=== PATIENT | male | born 1960 | race African-American/Black ===

== ENCOUNTER 2024-06-24 08:00 | Emergency (ER) | payer BC, SELFPAY ==
[2024-06-24 08:19] VITALS: BP 140/92
[2024-06-24 09:20] VITALS: BP 144/88
--- NOTE | 2024-06-24 09:35 | ED.MUSCINJ ---
HPI-Injury
General
Chief Complaint: Extremity Pain (non-traumatic)
Source: patient
Exam Limitations: none
Time Seen by Provider: 06/24/24 09:21
History of Present Illness-Injury
Initial Injury comments:
63-year-old homeless male with history of gout presents complaining of pain in the feet left greater than the right. Feels like his gout has in the past. No known injury. He states he was wearing different shoewear recently which may have thrown
him off. He denies chest pain or shortness of breath. No fever. He did states that he is having pain in his hips and down to his legs however that he attributes this to wearing different boots that through his gait off. He is now wearing normal
sneakers which seems to be helping. No associated numbness. History of hypertension otherwise. No other complaints at this
Past History
Past History
ED Past Medical History: CAD
ED Past Surgical History: Cardiac
Social History
Tobacco: Non-smoker
Alcohol: None
Drug: None
Personal: Single
Living: homeless
Employment: Not employed
Phy Exam
Physical Exam
Physical Exam:
General: Well-appearing male no acute respiratory distress
HEENT: Normocephalic atraumatic
Musculoskeletal exam: Left large toe at the MTP joint erythematous and tender. No lymphangitic streaking bilateral hips are nontender with full range of motion able to straight leg raise bilaterally. Hip and knee flexion intact. No tenderness to
the upper legs
Vascular: 2+ dorsalis pedis pulse bilateral feet
Neurologic: Good sensation bilateral feet
Injury Course
Orders/Labs/Results
Orders:
Orders
06/24/24 09:31
Cast Shoe Left-Treatment ONCE
Prednisone [Deltasone] 50 mg PO NOW STA
06/24/24 09:51
CR Femur - Left Min 2 Vw Urgent
Comment:
Reason For Exam: pain
CR Femur - Right Min 2 Vw Urgent
Comment:
Reason For Exam: pain
CR Pelvis - 1 Or 2 Views Urgent
Comment:
Reason For Exam: pain in hips
MDM/Problems Addressed
Differential Diagnosis Includes:
Left large toe pain exam most consistent with gout. He has a history of the same. No injury to suggest fracture. His legs examined well otherwise. No sign of infection.
Patient has a halfway that he is staying currently. Will start prednisone and give him a cast shoe
*Critical Care Note
Total Time (30-74mins, 75-104mins- exclusive of procedures): Not Applicable
Update Note
Update Note:
X-rays of the pelvis and bilateral femurs were negative for acute finding. Patient reassured. Suspect gout flare to the left foot. Prednisone will be prescribed
ED Attending Note
-
Portions of this chart may have been created with voice recognition software.� Occasional wrong word or��sound alike� substitutions may have occurred due to the inherent limitations of voice recognition software.
Discharge Plan
Departure
Patient Disposition: Home (Routine Discharge)
Date of Disposition: 06/24/24
Time of Disposition: 12:40
Patient with high blood pressure during this ER visit?: No
Discharge Problem:
Gout attack
Prescriptions:
New
prednisone 20 mg tablet
40 mg PO DAILY 5 Days Qty: 10 0RF
No Action
prednisone 20 mg tablet
40 mg PO DAILY 7 Days Qty: 14 0RF
ibuprofen 600 mg tablet
600 mg PO Q8H PRN (Reason: pain) 5 Days Qty: 18 0RF
naproxen 500 mg tablet
500 mg PO BID 7 Days Qty: 14 0RF
naproxen 500 mg tablet
500 mg PO BID PRN (Reason: Pain) Qty: 14 0RF
prednisone 20 mg tablet
40 mg PO DAILY Qty: 14 0RF
hydrocodone-acetaminophen 5-325 mg tablet
1 tab PO Q4H PRN (Reason: Pain) Qty: 10 0RF
Referrals:
UNKNOWN - PT DOES,NOT KNOW [Family Provider] -
Activity Restrictions/Additional Instructions:
Take prednisone as directed. Use shoe for support when ambulating. Return if worse otherwise
Interventions
Interventions:
*Risk Screen - Suicide Last Done: 06/24/24 08:19
*General Assessment Last Done: 06/24/24 08:19
*Neglect/Abuse Screening Last Done: 06/24/24 08:19
ED- Fall Risk Assessment Last Done: 06/24/24 10:00
*ED COVID-19 Vaccine History Last Done: 06/24/24 08:19
ED-Skin Assessment Last Done: 06/24/24 10:31
ED-Peripheral Vascular Assessment Last Done: 06/24/24 09:57
ED-Musculoskeletal Assessment Last Done: 06/24/24 09:57
Discharge Date and Time
Print Language: FRENCH
[2024-06-24] MEDS: DELTASONE 50 MG PO (09:45)
[2024-06-24 10:00] VITALS: BP 128/74; BP 179/108
== END 2024-06-24 14:06 | disposition home or self-care (01) ==
LOC: EMR 08:00
PROVIDERS: EMERGENCY PHYSICIAN Student in an Organized Health Care Education/Training Program
DX: M10.9 Gout, unspecified (principal); M79.675 Pain in left toe(s); M25.551 Pain in right hip; M25.552 Pain in left hip; L53.9 Erythematous condition, unspecified; I10 Essential (primary) hypertension; I25.10 Atherosclerotic heart disease of native coronary artery without angina pectoris; Z59.00 Homelessness unspecified
CPT/HCPCS: 99283; 72170; 73552

== ENCOUNTER 2024-07-17 08:17 | Emergency (ER) | payer BC, SELFPAY ==
[2024-07-17 08:18] VITALS: BP 151/82
--- NOTE | 2024-07-17 09:23 | ED.GENMED ---
History of Present Illness
General
Chief Complaint: Musculo-Skeletal Complaint
Source: patient
Exam Limitations: none
Time Seen by Provider: 07/17/24 08:59
Nursing documentation reviewed up to this point in time: agreed with
History of Present Illness
History of Present Illness:
63-year-old male presenting to the emergency department today with concerns of right-sided foot discomfort. He claims this is consistent with previous gout flares. Denies any systemic symptoms denies any injuries some vague redness and irritation
to the lateral portion of the foot. Denies additional concerns
Past History
Past History
ED Past Medical History: CAD
ED Past Surgical History: Cardiac
Social History
Tobacco: Non-smoker
Alcohol: None
Drug: None
Personal: Single
Living: homeless
Employment: Not employed
Review of Systems
Review of Systems
Allergies reviewed?: Yes
All Other Systems: ROS reviewed and negative except as documented in HPI and ROS
Phy Exam
Physical Exam
Physical Exam:
GENERAL: Alert , in no apparent distress
EYE: pupils equal and reactive
NECK: Supple, no significant adenopathy.
ENT: o/p clr, mmm. Slight displacement of the right frontal tooth of the maxillary
CARDIAC: Regular rate and rhythm .
LUNGS: Clear breath sounds bilaterally, no acute respiratory distress, no wheezes/rales/rhonchi
ABDOMEN: Soft, without focal tenderness, no r/g, no cvat
NEUROLOGICAL: Alert and oriented, no focal neuro deficits
SKIN: Warm and dry, skin intact.
MUSCULOSKELETAL: Very subtle redness to the right lateral foot. He claims has been there for multiple days good range of motion strength, well perfused.
PSYCH: Normal and appropriate interaction.
Course
Orders/Labs/Results
Orders:
Orders
07/17/24 09:22
Prednisone [Deltasone] 50 mg PO NOW STA
07/17/24 09:52
Tetanus/Diphth/Acelpertussis [Adacel] 0.5 ml IM .ONCE ONE
Vital Signs
Initial and Last Documented VS:
Initial Vital Signs
Temp Pulse Resp BP Pulse Ox
98.0 F 78 16 151/82 98
07/17/24 08:18 07/17/24 08:18 07/17/24 08:18 07/17/24 08:18 07/17/24 08:18
Last Documented Vital Signs
Temp Pulse Resp BP Pulse Ox
98.0 F 78 16 151/82 98
07/17/24 08:18 07/17/24 08:18 07/17/24 08:18 07/17/24 08:18 07/17/24 08:18
MDM/Problems Addressed
MDM/Problems Addressed:
63-year-old male presenting to the emergency department with concerns potential gout flare. Has had similar symptoms many times in the past denies any fever or systemic symptoms. Very vague redness to the right foot on the lateral aspect. Good
range of motion and strength otherwise no signs of septic arthritis. Does not appear to be consistent with cellulitis not well demarcated. We discussed with the patient the possibility of early infection versus gout. Seems much more consistent
with gout specially due to his history. If symptoms worsen he was advised for immediate reassessment. He demonstrated understanding.
*Critical Care Note
Total Time (30-74mins, 75-104mins- exclusive of procedures): Not Applicable
ED Attending Note
-
Portions of this chart may have been created with voice recognition software.� Occasional wrong word or��sound alike� substitutions may have occurred due to the inherent limitations of voice recognition software.
Discharge Plan
Departure
Patient Disposition: Home (Routine Discharge)
Date of Disposition: 07/17/24
Time of Disposition: 09:23
Patient with high blood pressure during this ER visit?: No
Condition: Good
Covid-19: Not Applicable
Discharge Problem:
Gout attack
Instructions: Gout ED, Low-purine diet
Prescriptions:
New
prednisone 10 mg Tablet
See Rx Instructions .ROUTE .COMPLEX Qty: 45 0RF
Rx Instructions:
Take By Mouth:
50 mg daily x3 days, 40 mg daily x3 days,
30 mg daily x3 days, 20 mg daily x3 days,
10 mg daily x3 days
No Action
prednisone 20 mg tablet
40 mg PO DAILY 7 Days Qty: 14 0RF
ibuprofen 600 mg tablet
600 mg PO Q8H PRN (Reason: pain) 5 Days Qty: 18 0RF
naproxen 500 mg tablet
500 mg PO BID 7 Days Qty: 14 0RF
naproxen 500 mg tablet
500 mg PO BID PRN (Reason: Pain) Qty: 14 0RF
prednisone 20 mg tablet
40 mg PO DAILY Qty: 14 0RF
hydrocodone-acetaminophen 5-325 mg tablet
1 tab PO Q4H PRN (Reason: Pain) Qty: 10 0RF
prednisone 20 mg tablet
40 mg PO DAILY 5 Days Qty: 10 0RF
Referrals:
Bernardo Lubin MD [Active] - Follow up in 5-7 days
UNKNOWN - PT DOES,NOT KNOW [Family Provider] -
Activity Restrictions/Additional Instructions:
You came to the emergency department today with what appears to be a recurrent gout attack. Please follow closely as an outpatient to ensure this is improving properly return for any progressive symptoms.
Interventions
Interventions:
*Risk Screen - Suicide Last Done: 07/17/24 08:18
*Neglect/Abuse Screening Last Done: 07/17/24 08:18
Discharge Date and Time
Print Language: SETSWANA
[2024-07-17] MEDS: DELTASONE 50 MG PO (09:50)
== END 2024-07-17 09:50 | disposition home or self-care (01) ==
LOC: EMR 08:17
PROVIDERS: EMERGENCY PHYSICIAN Student in an Organized Health Care Education/Training Program
DX: M10.9 Gout, unspecified (principal); I25.10 Atherosclerotic heart disease of native coronary artery without angina pectoris
CPT/HCPCS: 99283

== ENCOUNTER 2024-08-14 11:23 | Emergency (ER) | payer MEDICARE, BC, SELFPAY ==
[2024-08-14 11:32] VITALS: BP 122/85
--- NOTE | 2024-08-14 11:51 | ED.MUSCINJ ---
HPI-Injury
General
Chief Complaint: Extremity Pain (non-traumatic)
Source: patient
Exam Limitations: none
Time Seen by Provider: 08/14/24 11:42
History of Present Illness-Injury
Initial Injury comments:
64-year-old male with history of gout presents for reoccurrence of gout left greater than the right foot. He has been seen here multiple times for the same. He is homeless. He does follow with a family doctor. No fevers. No other complaints at
this time
Past History
Past History
ED Past Medical History: CAD
ED Past Surgical History: Cardiac
Social History
Tobacco: Non-smoker
Alcohol: None
Drug: None
Personal: Single
Living: homeless
Employment: Not employed
Phy Exam
Physical Exam
Physical Exam:
General: Well-appearing male no acute respiratory distress
Musculoskeletal exam: First MTP joint left sanding machine tender subtle erythema right first MTP joint also slightly tender but no erythema. Ankles nontender no swelling
Vascular: Plus DP pulse bilateral feet
Neurologic good sensation bilateral
MDM/Problems Addressed
Differential Diagnosis Includes:
Left foot pain greater than right foot pain. History of gout. Exam most consistent with acute gout flare. Do not suspect cellulitis or septic arthritis. No traumatic injury. Will start on prednisone. Advised follow-up for possible allopurinol
initiation secondary to recurrent gout
*Critical Care Note
Total Time (30-74mins, 75-104mins- exclusive of procedures): Not Applicable
ED Attending Note
-
Portions of this chart may have been created with voice recognition software.� Occasional wrong word or��sound alike� substitutions may have occurred due to the inherent limitations of voice recognition software.
Discharge Plan
Departure
Patient Disposition: Home (Routine Discharge)
Date of Disposition: 08/14/24
Time of Disposition: 11:53
Patient with high blood pressure during this ER visit?: No
Discharge Problem:
Acute gout
Instructions: Muscle and Bone Pain (DC)
Prescriptions:
New
prednisone 20 mg tablet
40 mg PO DAILY Qty: 14 0RF
No Action
prednisone 20 mg tablet
40 mg PO DAILY 7 Days Qty: 14 0RF
ibuprofen 600 mg tablet
600 mg PO Q8H PRN (Reason: pain) 5 Days Qty: 18 0RF
naproxen 500 mg tablet
500 mg PO BID 7 Days Qty: 14 0RF
naproxen 500 mg tablet
500 mg PO BID PRN (Reason: Pain) Qty: 14 0RF
prednisone 20 mg tablet
40 mg PO DAILY Qty: 14 0RF
hydrocodone-acetaminophen 5-325 mg tablet
1 tab PO Q4H PRN (Reason: Pain) Qty: 10 0RF
prednisone 20 mg tablet
40 mg PO DAILY 5 Days Qty: 10 0RF
prednisone 10 mg Tablet
See Rx Instructions .ROUTE .COMPLEX Qty: 45 0RF
Rx Instructions:
Take By Mouth:
50 mg daily x3 days, 40 mg daily x3 days,
30 mg daily x3 days, 20 mg daily x3 days,
10 mg daily x3 days
Activity Restrictions/Additional Instructions:
Please follow-up with your primary care doctor and consider initiation of allopurinol when your gout symptoms calm down. Take prednisone as directed otherwise.
Interventions
Interventions:
*Risk Screen - Suicide Last Done: 08/14/24 11:32
*General Assessment Last Done: 08/14/24 11:32
*Neglect/Abuse Screening Last Done: 08/14/24 11:32
Discharge Date and Time
Print Language: YI
== END 2024-08-14 12:18 | disposition home or self-care (01) ==
LOC: EMR 11:23
PROVIDERS: EMERGENCY PHYSICIAN Emergency Medicine
DX: M10.072 Idiopathic gout, left ankle and foot (principal); M10.071 Idiopathic gout, right ankle and foot; I25.10 Atherosclerotic heart disease of native coronary artery without angina pectoris; Z59.00 Homelessness unspecified
CPT/HCPCS: 99283

== ENCOUNTER 2024-09-23 14:29 | Emergency (ER) | payer MEDICARE, SELFPAY ==
[2024-09-23 14:41] VITALS: BP 140/91
--- NOTE | 2024-09-23 16:00 | ED.GENMED ---
History of Present Illness
General
Chief Complaint: Musculo-Skeletal Complaint
Source: patient
Exam Limitations: none
Time Seen by Provider: 09/23/24 15:52
Nursing documentation reviewed up to this point in time: agreed with
History of Present Illness
History of Present Illness:
64 yr old male presents to the ER for evaluation. Patient has a history of gout but reports today he is here because he noticed some swelling in his right lower leg and right foot area. He he was not sure if this was gout. He denies any redness.
He denies any fever or chills. He denies any injury. No prior history of clot. He is currently homeless Reports this is not new.
Past History
Past History
ED Past Medical History: CAD
ED Past Surgical History: Cardiac
Social History
Tobacco: Non-smoker
Alcohol: None
Drug: None
Personal: Single
Living: homeless
Employment: Not employed
Review of Systems
Review of Systems
Allergies reviewed?: Yes
All Other Systems: ROS reviewed and negative except as documented in HPI and ROS
Constitutional: Reports no symptoms; Denies fever, fatigue or chills
Musculoskeletal: Reports other (swelling to right leg ); Denies joint swelling, neck pain or back pain
Skin: Reports no symptoms
Neurological: Reports no symptoms
Psychiatric: Reports no symptoms
Phy Exam
General Physical Exam
General Presentation: no apparent distress
General Skin: warm and dry
General Habitus: normal
General Mental: alert
General Hydration: appears well hydrated
Neurological Exam
Neurological Exam: alert and oriented x3
Musculoskeletal Exam
Musculoskeletal Exam: other (rle with strong pulses mild swelling to foot/lower leg no erythema no erythema no tenderness over first MTP joint region , no erythema to foot/joint full flexion/extension of right knee normal weight bearing no
obvious swelling no redness to knee )
Skin Exam
Skin Exam: normal color and warm/dry
Psychiatric Exam
Psychiatric Exam: normal mood/affect
Course
Orders/Labs/Results
Orders:
Orders
09/23/24 16:13
Venous Doppler Lwr Ext Rt [US Periph Venous LOWER Ext RT] Urgent
Comment:
Reason For Exam: swelling
Vital Signs
Initial and Last Documented VS:
Initial Vital Signs
Temp Pulse Resp BP Pulse Ox
98.7 F 87 16 140/91 97
09/23/24 14:41 09/23/24 14:41 09/23/24 14:41 09/23/24 14:41 09/23/24 14:41
Last Documented Vital Signs
Temp Pulse Resp BP Pulse Ox
98.7 F 77 16 124/84 99
09/23/24 14:41 09/23/24 16:03 09/23/24 16:03 09/23/24 16:03 09/23/24 16:03
MDM/Problems Addressed
MDM/Problems Addressed:
Patient is a 64-year-old male who has a history of homelessness and has been here in the ER several times in the past for gout presents with swelling of the right lower extremity. On exam patient has very minimal swelling to the right leg no
erythema no specific erythema or point tenderness to foot symptoms are not consistent with gout. He has no prior history of DVT but ultrasound was ordered and negative for DVT. He has no other complaints. denies shortness of breath, fevers.
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 Patient reports he has noticed a little bit of soreness behind the knee. Will DC with family practice clinic as well as orthopedics discussed elevation. He has no acute distress
normal weightbearing stable for discharge home.
*Radiology
Radiology exam reviewed: radiology read reviewed
*Pulse Oximetry
Patient hypoxic: no
*Critical Care Note
Total Time (30-74mins, 75-104mins- exclusive of procedures): Not Applicable
Data Reviewed
Review of Other/Old Records Reveals: Other (previous ED visits )
ED Attending Note
-
Portions of this chart may have been created with voice recognition software.� Occasional wrong word or��sound alike� substitutions may have occurred due to the inherent limitations of voice recognition software.
Discharge Plan
Departure
Patient Disposition: Home (Routine Discharge)
Date of Disposition: 09/23/24
Time of Disposition: 19:21
Patient with high blood pressure during this ER visit?: Yes
Covid-19: Not Applicable
Discharge Problem:
Leg swelling
Instructions: Swelling
Prescriptions:
No Action
prednisone 20 mg tablet
40 mg PO DAILY 7 Days Qty: 14 0RF
ibuprofen 600 mg tablet
600 mg PO Q8H PRN (Reason: pain) 5 Days Qty: 18 0RF
naproxen 500 mg tablet
500 mg PO BID 7 Days Qty: 14 0RF
naproxen 500 mg tablet
500 mg PO BID PRN (Reason: Pain) Qty: 14 0RF
prednisone 20 mg tablet
40 mg PO DAILY Qty: 14 0RF
hydrocodone-acetaminophen 5-325 mg tablet
1 tab PO Q4H PRN (Reason: Pain) Qty: 10 0RF
prednisone 20 mg tablet
40 mg PO DAILY 5 Days Qty: 10 0RF
prednisone 10 mg Tablet
See Rx Instructions .ROUTE .COMPLEX Qty: 45 0RF
Rx Instructions:
Take By Mouth:
50 mg daily x3 days, 40 mg daily x3 days,
30 mg daily x3 days, 20 mg daily x3 days,
10 mg daily x3 days
prednisone 20 mg tablet
40 mg PO DAILY Qty: 14 0RF
Referrals:
[facility] [Provider Group]
[facility] [Outside]
NONE,* [Family Provider] -
Kaveh Do MD [Active] -
Activity Restrictions/Additional Instructions:
As discussed there is no blood clot. follow-up with orthopedics as needed for further evaluation of knee discomfort and family practice clinic for further evaluation. Keep elevated as much as possible
Interventions
Interventions:
*Risk Screen - Suicide Last Done: 09/23/24 14:41
*General Assessment Last Done: 09/23/24 15:57
*Neglect/Abuse Screening Last Done: 09/23/24 14:41
*ED- Fall Risk Assessment Last Done: 09/23/24 15:57
*Nursing Disposition Last Done: 09/23/24 19:28
ED-Musculoskeletal Assessment Last Done: 09/23/24 15:57
Discharge Date and Time
Print Language: DANISH
[2024-09-23 16:03] VITALS: BP 124/84; BMI 32.6
== END 2024-09-23 19:28 | disposition home or self-care (01) ==
LOC: EMR 14:29
PROVIDERS: EMERGENCY PHYSICIAN Student in an Organized Health Care Education/Training Program
DX: R22.41 Localized swelling, mass and lump, right lower limb (principal); M71.21 Synovial cyst of popliteal space [Baker], right knee; I25.10 Atherosclerotic heart disease of native coronary artery without angina pectoris; Z59.00 Homelessness unspecified
CPT/HCPCS: 99284; 93971